=== PATIENT | male | born 1955 | race Caucasian/White ===

== ENCOUNTER 2016-08-18 05:12 | Inpatient (IN) | payer MEDICARE ==
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
[2016-08-18] MEDS ORDERED: MORPHINE SULFATE 10 MG/ML INJ IV ONE (07:06)
[2016-08-18 07:23] LABS: ABSOLUTE BASOPHILS # (AUTO) 0.1 10^3/uL (0.0-0.2); ABSOLUTE EOSINOPHILS # (AUTO) 0.1 10^3/uL (0.0-0.6); ABSOLUTE LYMPHOCYTES (AUTO) 1.9 10^3/uL (0.5-4.7); BASOPHILS % (AUTO) 0.4 % (0-2); EOSINOPHILS % (AUTO) 0.6 % (0-6); HEMATOCRIT 39.7 % (37.9-51.0); HEMOGLOBIN 13.3 g/dL (13.5-17.0); HGB HCT DIFFERENCE 0.2; LYMPHOCYTES % (AUTO) 13.7 % (13-45); MEAN CORPUSCULAR HEMOGLOBIN 31.1 pg (27.0-33.4); MEAN CORPUSCULAR HGB CONC 33.6 g/dL (32.0-36.0); MEAN CORPUSCULAR VOLUME 92 fl (80-97); MONOCYTES % (AUTO) 7.2 % (3-13); RED CELL DISTRIBUTION WIDTH 13.3 % (11.5-14.0); SEGMENTED NEUTROPHILS % (AUTO) 78.1 % (42-78)
[2016-08-18 07:45] LABS: ALANINE AMINOTRANSFERASE 38 U/L (21-72); ALBUMIN 4.3 g/dL (3.5-5.0); ALKALINE PHOSPHATASE 71 U/L (38-126); ANION GAP 12 (5-19); ASPARTATE AMINO TRANSFERASE 41 U/L (17-59); BILIRUBIN,DIRECT 0.1 mg/dL (0.0-0.4); BILIRUBIN,TOTAL 0.7 mg/dL (0.2-1.3); BLOOD UREA NITROGEN 18 mg/dL (7-20); CALCIUM 9.8 mg/dL (8.4-10.2); CARBON DIOXIDE 29 mmol/L (22-30); CHLORIDE 96 mmol/L (98-107); CREATININE RESULT 0.62 mg/dL (0.52-1.25); GLUCOSE 117 mg/dL (75-110); POTASSIUM 4.5 mmol/L (3.6-5.0); SODIUM 136.9 mmol/L (137-145); TOTAL PROTEIN 7.4 g/dL (6.3-8.2)
[2016-08-18 08:53] LABS: APPEARANCE,URINE SLIGHTLY-CLOUDY; BILIRUBIN,URINE NEGATIVE (NEGATIVE); GLUCOSE, URINE NEGATIVE (NEGATIVE); KETONES,URINE NEGATIVE (NEGATIVE); LEUKOCYTE ESTERASE,URINE TRACE (NEGATIVE); NITRITE,URINE NEGATIVE (NEGATIVE); PROTEIN,URINE NEGATIVE (NEGATIVE); URINE SPECIFIC GRAVITY 1.016; UROBILINOGEN,URINE NEGATIVE mg/dL (<2.0)
[2016-08-18] MEDS ORDERED: LEVOFLOXACIN 750 MG/D5W RTU 150 ML IV ONE (11:40)
[2016-08-18] MEDS ORDERED: ONDANSETRON 4 MG TAB.RAPDIS PO PRN (12:21)
[2016-08-18] MEDS ORDERED: IPRATROPIUM/ALBUTEROL 0.5-2.5 MG/3 ML AMPUL NEB PRN (12:21)
[2016-08-18] MEDS ORDERED: ONDANSETRON HCL INJ/PF 4 MG/2 ML SDV IV PRN (12:21)
[2016-08-18] MEDS ORDERED: HEPARIN SOD (PORCINE) 1,000 UNIT/ML 10 ML VIAL IV PRN (12:29)
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
[2016-08-18] MEDS ORDERED: HEPARIN SOD (PORCINE) 1,000 UNIT/ML 10 ML VIAL IV ONE (13:00)
[2016-08-18] MEDS: HYDROMORPHONE HCL INJ/PF 2 MG/ML AMPULE IV PRN ×2 (15:19→20:34)
--- NOTE | 2016-08-18 15:38 | EKG REPORT ---
SEVERITY:- OTHERWISE NORMAL ECG - SINUS RHYTHM BORDERLINE LEFT AXIS DEVIATION : Confirmed by: Capri Dahl MD 18-Aug-2016 15:36:52
[2016-08-18 15:42] LABS: ABSOLUTE EOSINOPHILS # (AUTO) 0.1 10^3/uL (0.0-0.6); ABSOLUTE LYMPHOCYTES (AUTO) 2.1 10^3/uL (0.5-4.7); ABSOLUTE MONOCYTES (AUTO) 1.1 10^3/uL (0.1-1.4); ABSOLUTE NEUT (AUTO) 10.3 10^3/uL (1.7-8.2); BASOPHILS % (AUTO) 0.3 % (0-2); EOSINOPHILS % (AUTO) 0.9 % (0-6); HEMATOCRIT 37.1 % (37.9-51.0); HEMOGLOBIN 12.7 g/dL (13.5-17.0); LYMPHOCYTES % (AUTO) 15.1 % (13-45); MEAN CORPUSCULAR HEMOGLOBIN 31.3 pg (27.0-33.4); MEAN CORPUSCULAR HGB CONC 34.3 g/dL (32.0-36.0); MEAN CORPUSCULAR VOLUME 91 fl (80-97); MONOCYTES % (AUTO) 8.3 % (3-13); RED BLOOD COUNT 4.07 10^6/uL (4.35-5.55); RED CELL DISTRIBUTION WIDTH 13.1 % (11.5-14.0); SEGMENTED NEUTROPHILS % (AUTO) 75.4 % (42-78); WHITE BLOOD COUNT 13.7 10^3/uL (4.0-10.5)
[2016-08-18 15:46] LABS: PROTHROMBIN TIME 13.8 SEC (11.4-15.4)
[2016-08-18 15:47] LABS: PARTIAL THROMBOPLASTIN TIME 34.6 SEC (23.5-35.8)
[2016-08-18] MEDS: HEPARIN SODIUM,PORCINE/D5W 250 ML IV PRN (16:55)
[2016-08-18] MEDS: FAMOTIDINE 20 MG TABLET PO SCH (21:02)
[2016-08-19] MEDS: HEPARIN SODIUM,PORCINE/D5W 250 ML IV PRN (00:15)
[2016-08-19] MEDS: OXYCODONE HCL IR 5 MG TABLET PO PRN ×2 (01:25→08:06)
[2016-08-19 01:46] LABS: APPEARANCE,URINE CLEAR; BILIRUBIN,URINE NEGATIVE (NEGATIVE); GLUCOSE, URINE NEGATIVE (NEGATIVE); KETONES,URINE NEGATIVE (NEGATIVE); LEUKOCYTE ESTERASE,URINE NEGATIVE (NEGATIVE); NITRITE,URINE NEGATIVE (NEGATIVE); PROTEIN,URINE NEGATIVE (NEGATIVE); URINE SPECIFIC GRAVITY 1.015; UROBILINOGEN,URINE NEGATIVE mg/dL (<2.0)
[2016-08-19 06:38] LABS: APPEARANCE,URINE CLEAR; BILIRUBIN,URINE NEGATIVE (NEGATIVE); GLUCOSE, URINE NEGATIVE (NEGATIVE); KETONES,URINE NEGATIVE (NEGATIVE); LEUKOCYTE ESTERASE,URINE NEGATIVE (NEGATIVE); NITRITE,URINE NEGATIVE (NEGATIVE); PROTEIN,URINE NEGATIVE (NEGATIVE); URINE SPECIFIC GRAVITY 1.011; UROBILINOGEN,URINE NEGATIVE mg/dL (<2.0)
[2016-08-19 07:14] LABS: HEMATOCRIT 38.7 % (37.9-51.0); HGB HCT DIFFERENCE 0.3; MEAN CORPUSCULAR HGB CONC 33.6 g/dL (32.0-36.0); MEAN CORPUSCULAR VOLUME 92 fl (80-97); RED BLOOD COUNT 4.19 10^6/uL (4.35-5.55); WHITE BLOOD COUNT 13.9 10^3/uL (4.0-10.5)
[2016-08-19 07:33] LABS: ANION GAP 13 (5-19); BLOOD UREA NITROGEN 16 mg/dL (7-20); CALCIUM 9.2 mg/dL (8.4-10.2); CARBON DIOXIDE 25 mmol/L (22-30); CHLORIDE 98 mmol/L (98-107); GLUCOSE 132 mg/dL (75-110); POTASSIUM 4.7 mmol/L (3.6-5.0); SODIUM 136.3 mmol/L (137-145)
[2016-08-19] MEDS: FAMOTIDINE 20 MG TABLET PO SCH (10:00)
[2016-08-19] MEDS ORDERED: LEVOFLOXACIN 750 MG/D5W RTU 150 ML IV SCH (10:00)
[2016-08-19] MEDS ORDERED: (PENDING PHARMACY ID) (Clonazepam [Klonopin] 0.5 MG) PO PRN (10:34)
[2016-08-19] MEDS ORDERED: GABAPENTIN 300 MG CAPSULE PO PRN (10:34)
[2016-08-19] MEDS ORDERED: OXYCODONE HCL IR 5 MG TABLET PO PRN (10:34)
--- NOTE | 2016-08-19 10:38 | PDOC PROGRESS REPORT ---
Subjective Progress Note for:: 08/19/16 Subjective:: Patient states that he has had occasional mild hemoptysis. He has also had 2 weeks of right sided mid back pain radiating to his right groin. He does have a history of chronic back pain and has had a spinal stimulator placed in the past. He denies weight loss. He denies loss of appetite. Physical Exam Vital Signs: Temp Pulse Resp BP Pulse Ox 97.5 F 95 18 142/92 H 98 08/19/16 07:18 08/19/16 07:18 08/19/16 07:18 08/19/16 07:18 08/19/16 07:18 Intake & Output 08/18/16 08/19/16 08/20/16 06:59 06:59 06:59 Intake Total 958 Output Total 800 Balance 158 Weight 105.6 kg GENERAL: No acute distress HEENT: Conjunctiva clear, nonicteric, moist mucous membranes, no JVD, midline trachea RESPIRATORY: Clear to auscultation bilaterally, no wheezes, no rhonchi CARDIAC: Regular rate and rhythm, no murmurs/gallops/rubs ABDOMEN: Soft, nondistended, nontender, positive bowel sounds, no rebound, no guarding EXTREMETIES: No edema, cyanosis, clubbing NEUROLOGIC: Alert, oriented to person/place/time, CN's grossly intact, no focal deficits SKIN: No rash, wounds PSYCH: Normal mood, normal affect Results Laboratory Results: 08/19/16 07:00 08/19/16 07:00 08/18/16 08/19/16 08/19/16 15:24 01:20 06:00 WBC 13.7 H RBC 4.07 L Hgb 12.7 L Hct 37.1 L MCV 91 MCH 31.3 MCHC 34.3 RDW 13.1 Plt Count 244 Seg Neutrophils % 75.4 Lymphocytes % 15.1 Monocytes % 8.3 Eosinophils % 0.9 Basophils % 0.3 Absolute Neutrophils 10.3 H Absolute Lymphocytes 2.1 Absolute Monocytes 1.1 Absolute Eosinophils 0.1 Absolute Basophils 0.0 Sodium Potassium Chloride Carbon Dioxide Anion Gap BUN Creatinine Est GFR ( Amer) Est GFR (Non-Af Amer) Glucose Calcium Urine Color YELLOW YELLOW Urine Appearance CLEAR CLEAR Urine pH 6.0 6.0 Ur Specific [place] 1.015 1.011 Urine Protein NEGATIVE NEGATIVE Urine Glucose (UA) NEGATIVE NEGATIVE Urine Ketones NEGATIVE NEGATIVE Urine Blood SMALL H SMALL H Urine Nitrite NEGATIVE NEGATIVE Ur Leukocyte Esterase NEGATIVE NEGATIVE Urine WBC (Auto) 2 0 Urine RBC (Auto) 0 1 08/19/16 08/19/16 07:00 07:00 WBC 13.9 H RBC 4.19 L Hgb 13.0 L Hct 38.7 MCV 92 MCH 31.0 MCHC 33.6 RDW 13.0 Plt Count 237 Seg Neutrophils % Lymphocytes % Monocytes % Eosinophils % Basophils % Absolute Neutrophils Absolute Lymphocytes Absolute Monocytes Absolute Eosinophils Absolute Basophils Sodium 136.3 L Potassium 4.7 Chloride 98 Carbon Dioxide 25 Anion Gap 13 BUN 16 Creatinine 0.60 Est GFR ( Amer) > 60 Est GFR (Non-Af Amer) > 60 Glucose 132 H Calcium 9.2 Urine Color Urine Appearance Urine pH Ur Specific [place] Urine Protein Urine Glucose (UA) Urine Ketones Urine Blood Urine Nitrite Ur Leukocyte Esterase Urine WBC (Auto) Urine RBC (Auto) Impressions: Chest X-Ray 08/18/16 07:02 IMPRESSION: NO ACUTE RADIOGRAPHIC FINDING IN THE CHEST. Chest/Abdomen CTA 08/18/16 08:56 IMPRESSION: Airspace consolidation in the right lower lobe which could represent a pneumonic infiltrate or atelectatic changes. There are intraluminal filling defects involving the distal right descending pulmonary artery and adjacent branches. While this may be related to pulmonary embolic disease, the possibility of vascular invasion by an adjacent right hilar mass cannot be excluded. Right hilar masses are identified presumably representing adenopathy however the possibility of a primary mass lesion cannot be excluded. There are multiple small nonenlarged mediastinal and left hilar lymph nodes. Other findings as noted above Assessment & Plan - Diagnosis (1) Lung mass Is this a current diagnosis for this admission?: YesPlan: In review of patient's CAT scan of the chest looks like he has a right lung mass. I think it is less likely that he has a pulmonary embolism, rather he likely has invasion from surrounding malignancy. Given ongoing hemoptysis I would like to discontinue anticoagulation. Based on elevated white blood count postobstructive pneumonia cannot be excluded. Continue Levaquin and add Zosyn for now. Blood cultures are still pending. Consult Dr. Courtney of pulmonary medicine. Consult Dr. Ct Mchugh of oncology. I have discussed these findings in detail with patient. He does not want to stay in the hospital for evaluation of possible as he has nobody to take care of his dog. Perhaps we can arrange outpatient workup/follow-up for these issues after consults are obtained. (2) Hemoptysis Is this a current diagnosis for this admission?: YesPlan: I think we need to discontinue heparin drip as CT findings are likely more consistent with tumor invasion of the vasculature rather than ulnar embolism. Patient is likely to have life-threatening pulmonary hemorrhage if fully anticoagulate under these circumstances. (3) Back pain Is this a current diagnosis for this admission?: YesPlan: Check CT scan abdomen/pelvis given lung mass. Patient has chronic pain and is chronic opiate dependent at baseline. He has a history of a spinal stimulator per his report. (4) BPH (benign prostatic hyperplasia) Is this a current diagnosis for this admission?: YesPlan: Resume outpatient Flomax. (5) Hypertension Is this a current diagnosis for this admission?: YesPlan: Resume outpatient atenolol 100 mg daily. (6) Tobacco abuse Is this a current diagnosis for this admission?: Yes - Time Time Spent with patient: 35 or more minutes Anticipated discharge: Home - Inpatient Certification Based on my medical assessment, after consideration of the patient's comorbidities, presenting symptoms, or acuity I expect that the services needed warrant INPATIENT care.: Yes I certify that my determination is in accordance with my understanding of Medicare's requirements for reasonable and necessary INPATIENT services [42 CFR 412.3e].: Yes Medical Necessity: Risk of Diagnosis Which Will Require Inpatient Eval/Care/ Monitoring
[2016-08-19] MEDS ORDERED: CLONAZEPAM 1 MG TABLET PO PRN (10:46)
[2016-08-19] MEDS: PIPERACILLIN SODIUM/TAZOBACTAM 3.375 GM in NORMAL SALINE 100 ML IV SCH ×2 (14:24→17:34)
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
[2016-08-19] MEDS ORDERED: DEXTROSE 40% GEL 15 GM TUBE PO PRN ×2 (14:46)
[2016-08-19] MEDS ORDERED: GLUCAGON,HUMAN RECOMB 1 MG INJ SUBCUT PRN (14:46)
[2016-08-19] MEDS ORDERED: DEXTROSE 50%-WATER 25 GM/50 ML DISP.SYRIN IV PRN ×2 (14:46)
[2016-08-19] MEDS ORDERED: NICOTINE 14 MG/24 HR PATCH.TD24 TD ONE (16:00)
--- NOTE | 2016-08-19 17:34 | PDOC DISCHARGE SUMMARY ---
General - Admit/Disc Date/PCP Admission Date/Primary Care Provider: 08/19/16 09:55 Discharge Date: 08/19/16 - Discharge Diagnosis (1) Lung mass Is this a current diagnosis for this admission?: Yes (2) Pneumonia Is this a current diagnosis for this admission?: Yes (3) Hemoptysis Is this a current diagnosis for this admission?: Yes (4) Back pain Is this a current diagnosis for this admission?: Yes (5) BPH (benign prostatic hyperplasia) Is this a current diagnosis for this admission?: Yes (6) Hypertension Is this a current diagnosis for this admission?: Yes (7) Tobacco abuse Is this a current diagnosis for this admission?: Yes - Additional Information Resuscitation Status: Do Not Resuscitate Discharge Diet: Regular Discharge Activity: Activity As Tolerated Home Medications: Atenolol [Tenormin 100 mg Tablet] 100 mg PO DAILY 08/18/16 Clonazepam [Klonopin] 0.5 mg PO BIDP PRN 08/18/16 Gabapentin [Neurontin 300 mg Capsule] 300 mg PO DAILYP PRN 08/18/16 Oxycodone HCl [Oxy-Ir 5 mg Tablet] 15 mg PO 5XDP PRN 08/18/16 Tamsulosin HCl [Flomax 0.4 mg Cap.sr] 0.4 mg PO DAILY 08/18/16 Amoxicillin/Potassium Clav [Augmentin 875-125 Tablet] 1 each PO BID #14 tablet 08/19/16 Azithromycin 500 mg PO DAILY #5 tablet 08/19/16 Benzonatate [Tessalon Perle 100 mg Capsule] 100 mg PO Q8HP PRN #20 cap 08/19/16 History of Present Illness Patient complains of: Coughing up blood History of Present Illness: KAHLIL MAX is a 60 year old male who presents with coughing up blood. Patient reports that for the last 2 days he has had problems with right flank pain and right posterior chest wall pain. He then last night began having episodes of coughing and coughed up some bright red blood. Patient had a CT angiogram of the lungs which shows him to have a right sided pneumonia along with pulmonary embolism and a possible lung mass. Patient denies having any fevers or chills. Denies any night sweats. Denies any weight loss. He does smoke one half pack per day. Denies any exposure to anyone with tuberculosis. Denies any overseas travel. Denies any episodes of long immobility. He denies having any palpitations or tachycardia. He denies any orthopnea or PND. Denies any lower extremity edema. Hospital Course Hospital Course: Patient with right lung mass and probable post-obstructive pneumonia. Seen by Dr. Courtney of pulmonary and Dr. Mchugh of oncology. Patient is scheduled to have bronchoscopy on 08/22/2016 and will follow up with pulmonary and oncology as outpatient. CTA of chest mentioned filling defect in segmental branch of pulmonary artery with DDXincluding PE or direct invasion of malignancy. Given ongoing hemoptysis, lung mass, and upcoming bronchoscopy and biopsy decicion was made not to anticoagulate patient. It was felt that his bleeding risk was too high to tolerate anticoagulation. He is discharged home on oral antibiotics and advised to stop smoking. Physical Exam Vital Signs: Temp Pulse Resp BP Pulse Ox 97.5 F 98 16 137/71 H 98 08/19/16 12:10 08/19/16 14:00 08/19/16 12:10 08/19/16 12:10 08/19/16 12:10 Intake & Output 08/18/16 08/19/16 08/20/16 06:59 06:59 06:59 Intake Total 437 Balance 437 General appearance: PRESENT: no acute distress, well-developed, well-nourished Head exam: PRESENT: atraumatic, normocephalic Eye exam: PRESENT: conjunctiva pink, EOMI, PERRLA. ABSENT: scleral icterus Ear exam: PRESENT: normal external ear exam Mouth exam: PRESENT: moist, tongue midline Neck exam: ABSENT: carotid bruit, JVD, lymphadenopathy, thyromegaly Respiratory exam: PRESENT: clear to auscultation radu. ABSENT: rales, rhonchi, wheezes Cardiovascular exam: PRESENT: RRR. ABSENT: diastolic murmur, rubs, systolic murmur Pulses: PRESENT: normal dorsalis pedis pul Vascular exam: PRESENT: normal capillary refill GI/Abdominal exam: PRESENT: normal bowel sounds, soft. ABSENT: distended, guarding, mass, organolmegaly, rebound, tenderness Rectal exam: PRESENT: deferred Extremities exam: PRESENT: full ROM. ABSENT: calf tenderness, clubbing, pedal edema Neurological exam: PRESENT: alert, awake, oriented to person, oriented to place , oriented to time, oriented to situation, CN II-XII grossly intact. ABSENT: motor sensory deficit Psychiatric exam: PRESENT: appropriate affect, normal mood. ABSENT: homicidal ideation, suicidal ideation Skin exam: PRESENT: dry, intact, warm. ABSENT: cyanosis, rash Results Laboratory Results: Labs- Entire Visit 08/18/16 08/18/16 08/18/16 07:00 07:00 08:18 WBC 14.0 H RBC 4.30 L Hgb 13.3 L Hct 39.7 MCV 92 MCH 31.1 MCHC 33.6 RDW 13.3 Plt Count 259 Seg Neutrophils % 78.1 H Lymphocytes % 13.7 Monocytes % 7.2 Eosinophils % 0.6 Basophils % 0.4 Absolute Neutrophils 11.0 H Absolute Lymphocytes 1.9 Absolute Monocytes 1.0 Absolute Eosinophils 0.1 Absolute Basophils 0.1 PT INR APTT Sodium 136.9 L Potassium 4.5 Chloride 96 L Carbon Dioxide 29 Anion Gap 12 BUN 18 Creatinine 0.62 Est GFR ( Amer) > 60 Est GFR (Non-Af Amer) > 60 Glucose 117 H Calcium 9.8 Total Bilirubin 0.7 Direct Bilirubin 0.1 Indirect Bilirubin Not Reportable Neonat Total Bilirubin Not Reportable AST 41 ALT 38 Alkaline Phosphatase 71 Total Protein 7.4 Albumin 4.3 Urine Color YELLOW Urine Appearance SLIGHTLY-CLOUDY Urine pH 6.0 Ur Specific Jansen 1.016 Urine Protein NEGATIVE Urine Glucose (UA) NEGATIVE Urine Ketones NEGATIVE Urine Blood NEGATIVE Urine Nitrite NEGATIVE Urine Bilirubin NEGATIVE Urine Urobilinogen NEGATIVE Ur Leukocyte Esterase TRACE H Urine WBC (Auto) 2 Urine RBC (Auto) 2 Squamous Epi Cells Auto <1 Urine Mucus (Auto) RARE Urine Ascorbic Acid NEGATIVE 08/18/16 08/18/16 08/18/16 15:24 15:24 22:50 WBC 13.7 H RBC 4.07 L Hgb 12.7 L Hct 37.1 L MCV 91 MCH 31.3 MCHC 34.3 RDW 13.1 Plt Count 244 Seg Neutrophils % 75.4 Lymphocytes % 15.1 Monocytes % 8.3 Eosinophils % 0.9 Basophils % 0.3 Absolute Neutrophils 10.3 H Absolute Lymphocytes 2.1 Absolute Monocytes 1.1 Absolute Eosinophils 0.1 Absolute Basophils 0.0 PT 13.8 INR 1.03 APTT 34.6 36.1 H Sodium Potassium Chloride Carbon Dioxide Anion Gap BUN Creatinine Est GFR ( Amer) Est GFR (Non-Af Amer) Glucose Calcium Total Bilirubin Direct Bilirubin Indirect Bilirubin Neonat Total Bilirubin AST ALT Alkaline Phosphatase Total Protein Albumin Urine Color Urine Appearance Urine pH Ur Specific Jansen Urine Protein Urine Glucose (UA) Urine Ketones Urine Blood Urine Nitrite Urine Bilirubin Urine Urobilinogen Ur Leukocyte Esterase Urine WBC (Auto) Urine RBC (Auto) Squamous Epi Cells Auto Urine Mucus (Auto) Urine Ascorbic Acid 08/19/16 08/19/16 08/19/16 01:20 06:00 07:00 WBC 13.9 H RBC 4.19 L Hgb 13.0 L Hct 38.7 MCV 92 MCH 31.0 MCHC 33.6 RDW 13.0 Plt Count 237 Seg Neutrophils % Lymphocytes % Monocytes % Eosinophils % Basophils % Absolute Neutrophils Absolute Lymphocytes Absolute Monocytes Absolute Eosinophils Absolute Basophils PT INR APTT Sodium Potassium Chloride Carbon Dioxide Anion Gap BUN Creatinine Est GFR ( Amer) Est GFR (Non-Af Amer) Glucose Calcium Total Bilirubin Direct Bilirubin Indirect Bilirubin Neonat Total Bilirubin AST ALT Alkaline Phosphatase Total Protein Albumin Urine Color YELLOW YELLOW Urine Appearance CLEAR CLEAR Urine pH 6.0 6.0 Ur Specific Jansen 1.015 1.011 Urine Protein NEGATIVE NEGATIVE Urine Glucose (UA) NEGATIVE NEGATIVE Urine Ketones NEGATIVE NEGATIVE Urine Blood SMALL H SMALL H Urine Nitrite NEGATIVE NEGATIVE Urine Bilirubin NEGATIVE NEGATIVE Urine Urobilinogen NEGATIVE NEGATIVE Ur Leukocyte Esterase NEGATIVE NEGATIVE Urine WBC (Auto) 2 0 Urine RBC (Auto) 0 1 Squamous Epi Cells Auto Urine Mucus (Auto) RARE RARE Urine Ascorbic Acid NEGATIVE NEGATIVE 08/19/16 08/19/16 08/19/16 07:00 07:00 15:35 WBC RBC Hgb Hct MCV MCH MCHC RDW Plt Count Seg Neutrophils % Lymphocytes % Monocytes % Eosinophils % Basophils % Absolute Neutrophils Absolute Lymphocytes Absolute Monocytes Absolute Eosinophils Absolute Basophils PT INR APTT 112.8 H D 38.8 H Sodium 136.3 L Potassium 4.7 Chloride 98 Carbon Dioxide 25 Anion Gap 13 BUN 16 Creatinine 0.60 Est GFR ( Amer) > 60 Est GFR (Non-Af Amer) > 60 Glucose 132 H Calcium 9.2 Total Bilirubin Direct Bilirubin Indirect Bilirubin Neonat Total Bilirubin AST ALT Alkaline Phosphatase Total Protein Albumin Urine Color Urine Appearance Urine pH Ur Specific Jansen Urine Protein Urine Glucose (UA) Urine Ketones Urine Blood Urine Nitrite Urine Bilirubin Urine Urobilinogen Ur Leukocyte Esterase Urine WBC (Auto) Urine RBC (Auto) Squamous Epi Cells Auto Urine Mucus (Auto) Urine Ascorbic Acid Impressions: Chest X-Ray 08/18/16 07:02 IMPRESSION: NO ACUTE RADIOGRAPHIC FINDING IN THE CHEST. Chest/Abdomen CTA 08/18/16 08:56 IMPRESSION: Airspace consolidation in the right lower lobe which could represent a pneumonic infiltrate or atelectatic changes. There are intraluminal filling defects involving the distal right descending pulmonary artery and adjacent branches. While this may be related to pulmonary embolic disease, the possibility of vascular invasion by an adjacent right hilar mass cannot be excluded. Right hilar masses are identified presumably representing adenopathy however the possibility of a primary mass lesion cannot be excluded. There are multiple small nonenlarged mediastinal and left hilar lymph nodes. Other findings as noted above Abdomen/Pelvis CT 08/19/16 00:00 IMPRESSION: Right lower lobe pulmonary infarct/consolidation 6 to 7 mm left lower pole intrarenal nonobstructive stone. Degenerative changes lumbar spine most pronounced at L3-4. Qualifiers PATEINT BEING DISCHARGED WITH ANY OF THE FOLLOWING DIAGNOSIS?: No Plan Time Spent: Less than 30 Minutes
[2016-08-19] MEDS ORDERED: TAMSULOSIN HCL 0.4 MG CAP.SR.24H PO SCH (18:00)
[2016-08-19 18:40] VITALS: BP 154/86
[2016-08-20] MEDS ORDERED: (PENDING PHARMACY ID) (Atenolol [Tenormin 100 Mg Tablet] 100 MG) PO SCH (10:00)
[2016-08-20] MEDS ORDERED: NICOTINE 14 MG/24 HR PATCH.TD24 TD SCH (10:00)
[2016-08-20] MEDS ORDERED: ATENOLOL 50 MG TABLET PO SCH (10:00)
[2016-08-22] MEDS ORDERED: IPRATROPIUM/ALBUTEROL 0.5-2.5 MG/3 ML AMPUL NEB ONE (12:00)
== END 2016-08-19 19:00 | disposition home or self-care (01) | DRG 204 ==
LOC: ER 05:12 → UNDOADMIN 11:57 → EH 11:57 → INTOOBSV 12:22 → EH 12:22 → 3N 18:24 → OBSVTOIN 08-19 09:55
PROVIDERS: ADMIT Internal Medicine; ATTEND Internal Medicine
DX: R04.2 Hemoptysis (principal); J18.1 Lobar pneumonia, unspecified organism; R91.8 Other nonspecific abnormal finding of lung field; R10.9 Unspecified abdominal pain; M54.9 Dorsalgia, unspecified; G89.29 Other chronic pain; N40.0 Benign prostatic hyperplasia without lower urinary tract symptoms; I10 Essential (primary) hypertension; Z66 Do not resuscitate; Z79.899 Other long term (current) drug therapy; F17.210 Nicotine dependence, cigarettes, uncomplicated; Z88.8 Allergy status to other drugs, medicaments and biological substances
CPT/HCPCS: 36415; 71020; 71275; 74177; 80048; 80053; 81001; 85025; 85027; 85610; 85730; 87040; 93005; 93010; 99291; G0378; J1170; J1644; J1956; J2543; J3490

== ENCOUNTER 2016-08-22 10:33 | Day surgery (SDC) | payer MEDICARE ==
[2016-08-22 11:10] LABS: ABSOLUTE BASOPHILS # (AUTO) 0.1 10^3/uL (0.0-0.2); ABSOLUTE EOSINOPHILS # (AUTO) 0.5 10^3/uL (0.0-0.6); ABSOLUTE MONOCYTES (AUTO) 0.8 10^3/uL (0.1-1.4); ABSOLUTE NEUT (AUTO) 8.4 10^3/uL (1.7-8.2); BASOPHILS % (AUTO) 0.5 % (0-2); EOSINOPHILS % (AUTO) 3.9 % (0-6); HEMATOCRIT 38.9 % (37.9-51.0); HEMOGLOBIN 13.2 g/dL (13.5-17.0); HGB HCT DIFFERENCE 0.7; LYMPHOCYTES % (AUTO) 23.8 % (13-45); MEAN CORPUSCULAR HEMOGLOBIN 31.4 pg (27.0-33.4); MEAN CORPUSCULAR VOLUME 92 fl (80-97); MONOCYTES % (AUTO) 6.2 % (3-13); RED BLOOD COUNT 4.21 10^6/uL (4.35-5.55); RED CELL DISTRIBUTION WIDTH 13.1 % (11.5-14.0); SEGMENTED NEUTROPHILS % (AUTO) 65.6 % (42-78); WHITE BLOOD COUNT 12.8 10^3/uL (4.0-10.5)
[2016-08-22 11:19] LABS: PROTHROMBIN TIME 12.9 SEC (11.4-15.4)
[2016-08-22 11:20] LABS: PARTIAL THROMBOPLASTIN TIME 32.1 SEC (23.5-35.8)
[2016-08-22] MEDS ORDERED: DEXAMETHASONE SOD PHOSPHATE INJ 4 MG/1 ML VIAL ONE (11:55)
[2016-08-22] MEDS ORDERED: MIDAZOLAM 2 MG/2 ML INJ ONE (11:55)
[2016-08-22] MEDS ORDERED: ONDANSETRON HCL INJ/PF 4 MG/2 ML SDV ONE (11:55)
[2016-08-22] MEDS ORDERED: FENTANYL CITRATE INJ/PF 100 MCG/2 ML AMPUL ONE (11:55)
[2016-08-22] MEDS ORDERED: PROPOFOL INJ 200 MG/20 ML VIAL IV ONE (11:56)
[2016-08-22] MEDS ORDERED: ALBUTEROL SULFATE 0.083% NEB 2.5 MG/3 ML AMPUL NEB ONE (12:14)
[2016-08-22 12:29] LABS: ANION GAP 10 (5-19); BLOOD UREA NITROGEN 18 mg/dL (7-20); CALCIUM 9.6 mg/dL (8.4-10.2); CARBON DIOXIDE 25 mmol/L (22-30); CHLORIDE 104 mmol/L (98-107); CREATININE RESULT 0.51 mg/dL (0.52-1.25); GLUCOSE 99 mg/dL (75-110); POTASSIUM 4.9 mmol/L (3.6-5.0); SODIUM 139.3 mmol/L (137-145)
[2016-08-22] MEDS ORDERED: NORMAL SALINE 1000 ML 1,000 ML IV PRN (12:31)
[2016-08-22] MEDS ORDERED: LIDOCAINE 2% INJ (20 MG/ML) 20 ML MDV ONE (12:41)
[2016-08-22] MEDS ORDERED: LIDOCAINE 2% JELLY 30 ML TUBE ONE (12:41)
[2016-08-22] MEDS ORDERED: EPINEPHRINE INJ/PF 1 MG/1 ML AMPULE ONE (12:42)
[2016-08-22] MEDS ORDERED: PROMETHAZINE HCL INJ 25 MG/1 ML VIAL IV PRN ×2 (13:29)
[2016-08-22] MEDS ORDERED: FENTANYL CITRATE INJ/PF 100 MCG/2 ML AMPUL IV PRN ×3 (13:29)
[2016-08-22] MEDS ORDERED: MEPERIDINE HCL/PF INJ 25 MG/1 ML DISP.SYRIN IV PRN (13:29)
[2016-08-22] MEDS ORDERED: ONDANSETRON HCL INJ/PF 4 MG/2 ML SDV IV PRN (13:29)
[2016-08-22] MEDS ORDERED: DIPHENHYDRAMINE HCL 50 MG/ML VIAL IV PRN (13:29)
--- NOTE | 2016-08-22 14:15 | Operative Report ---
Operative Report DATE OF SURGERY: 08/22/16 Operative Report: Patient kept NPO 12 hrs prior to proceedure.Taken to preop area consents reviewed,nebulized treatment was given an iv access established,Then taken to bronchoscopy suite were he was intubated by anesthesiology.Then using a "T" sized Olympic scope his tracheo-bronchial tree was explored.There was minimal splaying of the jw and distal trachea was normal.His L mainstem bronchus,L upper lobe,lingula and L lower lobe were within normal limits.R main stem bronchus was normal.Lavage was taken from R middle lobe and R lower lobe.There was diffuse submucosal swelling along the R upper lobe,bronchus intermedius and r middle lobes.The submucosal swelling present but less pronounced in r lower lobe.Transbronchial biopsies R middle lobe and R lower lobe were taken.Multiple [place] needle biopsies from the R upper lobe,bronchus intermedius , R middle lobe and R lower lobe were taken.Patient tolerated well post procedure SAO2 98% and CXR in progress.Fluids and tissue sent to lab for appropriate analysis. PREOPERATIVE DIAGNOSIS: R Lung mass POSTOPERATIVE DIAGNOSIS: same OPERATION: fiberoptic bronchoscopy with bronchoalveolar lavage;transbronchial and lawton needle biopsy SURGEON: ANN LIU ANESTHESIA: GA TISSUE REMOVED OR ALTERED: bronchoalveolar lavage;transbronchial and lawton needle biopsy COMPLICATIONS: none ESTIMATED BLOOD LOSS: 5 cc
[2016-08-22] MEDS ORDERED: SUCCINYLCHOLINE CHLORIDE INJ 200 MG/10 ML VIAL ONE (14:35)
[2016-08-22 15:20] VITALS: BP 144/70
[2016-08-22 15:28] LABS: FLUID TYPE BRONCHIAL LAVAGE
[2016-08-22 15:29] LABS: FLUID APPEARANCE CLOUDY; FLUID RBC SIDE 1 85
[2016-08-22 15:30] LABS: FLUID RBC DILUENT USED NONE USED; FLUID RBC DILUTION FACTOR 1; FLUID RBC SIDE 2 75; TOTAL RBC SQUARES COUNTED FLD 225
[2016-08-22 15:42] LABS: FLUID APPEARANCE CLOUDY; FLUID RBC SIDE 1 805; FLUID RBC SIDE 2 845; FLUID TYPE BRONCHIAL LAVAGE
[2016-08-22 15:43] LABS: FLUID RBC DILUENT USED SALINE; FLUID RBC DILUTION FACTOR 26; TOTAL RBC SQUARES COUNTED FLD 25
[2016-08-22] MEDS ORDERED: ACETAMINOPHEN 325 MG TABLET PO SCH (18:00)
== END 2016-08-22 15:30 | disposition home or self-care (01) ==
LOC: OROUT 10:33
PROVIDERS: ATTEND Internal Medicine Pulmonary Disease
PROC: 0B9D8ZX Drainage of Right Middle Lung Lobe, Via Natural or Artificial Opening Endoscopic, Diagnostic (ICD-10-PCS; principal; 2016-08-22 12:45)
PROC: 0BBD8ZX Excision of Right Middle Lung Lobe, Via Natural or Artificial Opening Endoscopic, Diagnostic (ICD-10-PCS; 2016-08-22 12:45)
DX: R04.2 Hemoptysis (principal); R06.00 Dyspnea, unspecified; R91.8 Other nonspecific abnormal finding of lung field; I10 Essential (primary) hypertension; M19.90 Unspecified osteoarthritis, unspecified site; F17.210 Nicotine dependence, cigarettes, uncomplicated; Z96.659 Presence of unspecified artificial knee joint; Z96.643 Presence of artificial hip joint, bilateral; Z79.01 Long term (current) use of anticoagulants; Z88.5 Allergy status to narcotic agent
CPT/HCPCS: 31625; 31629; 31624; 36415; 87070; 87205; 87206; 87116; 87101; 85025; 85610; 85730; 89050; 80048; 87015; 88162; 88173 ×2; 88305 ×2; 71010; J2250; J1100; J0171; J3010; J0330; J2405; J2704; A9270; 520; J3490

== ENCOUNTER → 2016-08-24 | Outpatient (CLI) | payer MEDICARE ==
[2016-08-24 21:40] LABS: APPEARANCE,URINE CLEAR; BILIRUBIN,URINE NEGATIVE (NEGATIVE); GLUCOSE, URINE NEGATIVE (NEGATIVE); KETONES,URINE NEGATIVE (NEGATIVE); LEUKOCYTE ESTERASE,URINE NEGATIVE (NEGATIVE); NITRITE,URINE NEGATIVE (NEGATIVE); PROTEIN,URINE NEGATIVE (NEGATIVE); URINE SPECIFIC GRAVITY 1.015; UROBILINOGEN,URINE NEGATIVE mg/dL (<2.0)
[2016-08-24 21:53] LABS: ANION GAP 13 (5-19); BLOOD UREA NITROGEN 24 mg/dL (7-20); CALCIUM 9.8 mg/dL (8.4-10.2); CARBON DIOXIDE 25 mmol/L (22-30); CHLORIDE 105 mmol/L (98-107); CREATINE KINASE 153 U/L (55-170); GLUCOSE 95 mg/dL (75-110); MAGNESIUM 2.2 mg/dL (1.6-2.3); PHOSPHORUS 4.3 mg/dL (2.5-4.5); POTASSIUM 4.5 mmol/L (3.6-5.0); SODIUM 142.8 mmol/L (137-145)
== END ==
LOC: LAB 20:48
PROVIDERS: ATTEND Internal Medicine Pulmonary Disease
DX: R25.2 Cramp and spasm (principal)
CPT/HCPCS: 36415; 80048; 81001; 82550; 83735; 84100

== ENCOUNTER → 2016-12-10 | Outpatient (CLI) | payer MEDICARE ==
--- NOTE | 2016-12-10 09:20 | RADIOLOGY REPORT (SQ) ---
EXAM DESCRIPTION: CT CHEST WITHOUT COMPLETED DATE/TIME: 12/10/2016 8:47 am REASON FOR STUDY: LUNG NODULE R91.8 OTHER NONSPECIFIC ABNORMAL FINDING OF LUNG FIELD COMPARISON: 08/18/2016 TECHNIQUE: CT scan performed of the chest without intravenous contrast. Images reviewed with lung, soft tissue and bone windows. Reconstructed coronal and sagittal MPR images reviewed. All images st ored on PACS. All CT scanners at this facility use dose modulation, iterative reconstruction, and/or weight based d osing when appropriate to reduce radiation dose to as low as reasonably achievable (ALARA). [facility]: Dose Right [facility]: CareDose [facility]: Dose Right [facility]: Teradose 4D [facility]: Smart [place] Post RADIATION DOSE: Up-to-date CT equipment and radiation dose reduction techniques were employed. CTDIv ol: 18.8 mGy. DLP: 730 mGy-cm. mGy. LIMITATIONS: No technical limitations. FINDINGS: LUNGS AND PLEURA: Centrilobular and paraseptal emphysematous changes in the upper lobes. Linear scarring in the lung bases. No effusions. HILAR AND MEDIASTINAL STRUCTURES: No identified masses or abnormal nodes. No obvious aneurysm. HEART AND VASCULAR STRUCTURES: No aneurysm. No pericardial effusion. UPPER ABDOMEN: No significant findings. Limited exam. THYROID AND OTHER SOFT TISSUES: No masses. No adenopathy. BONES: Healed left rib fractures. No acute findings. HARDWARE: None in the chest. OTHER: No other significant findings. IMPRESSION: COPD. No acute findings. TECHNICAL DOCUMENTATION: JOB ID: [id number] Quality ID # [id number]: Final reports with documentation of one or more dose reduction techniques (e.g., Au tomated exposure control, adjustment of the mA and/or kV according to patient size, use of iterative reconstruction technique) 2010 [employer]- All Rights Reserved
== END ==
LOC: RAD 08:26
PROVIDERS: ATTEND Internal Medicine Critical Care Medicine
DX: R91.8 Other nonspecific abnormal finding of lung field (principal)
CPT/HCPCS: 71250

== ENCOUNTER → 2017-02-11 | Outpatient (CLI) | payer MEDICARE ==
--- NOTE | 2017-02-11 14:24 | RADIOLOGY REPORT (SQ) ---
EXAM DESCRIPTION: MRI LUMBAR SPINE WITHOUT COMPLETED DATE/TIME: 02/11/2017 10:00 am REASON FOR STUDY: RADICULOPATHY, LUMBAR REGION M54.17 RADICULOPATHY, LUMBOSACRAL REGION COMPARISON: None. TECHNIQUE: Sagittal and Axial imaging includes T1, T2, STIR and gradient echo sequences. Coronal T2/ HASTE imaging. LIMITATIONS: Motion FINDINGS: VISUALIZED UPPER ABDOMEN: Limited evaluation. No acute or suspicious findings suggested. SEGMENTATION: No transitional anatomy. The lowest well-developed disc space is labeled L5-S1. ALIGNMENT: Mild scoliosis. Mild malalignment in the coronal plane at multiple levels. VERTEBRAE: No acute fracture. BONE MARROW: No significant marrow abnormality. DISC SIGNAL: Desiccation multiple levels. POSTERIOR ELEMENTS: Intact. HARDWARE: None in the spine. CORD AND CONUS: Normal in size and signal intensity. Conus at the appropriate level. SOFT TISSUES: No aortic aneurysm seen. No bulky retroperitoneal adenopathy or mass. No paraspinal mas s or fluid. L1-L2: Ventral impression on the thecal sac due to disc bulge. Mild facet arthropathy. L2-L3: Ventral impression on the thecal sac due to disc osteophyte complex. Mild facet arthropathy. Mild neural foraminal narrowing. L3-L4: Ventral impression on the thecal sac due to disc osteophyte complex. Facet arthropathy. Mild left and moderate right neural foraminal narrowing. L4-L5: Disc bulge and facet arthropathy. No significant spinal stenosis or exit foraminal stenosis. L5-S1: Disc bulge and facet arthropathy. No significant spinal stenosis or exit foraminal stenosis. LOWER THORACIC: Incompletely imaged. Mild spinal stenosis T11-12. SACRUM: Visualized upper sacrum intact. OTHER: No other significant findings. IMPRESSION: Spondylosis and facet arthropathy. Mild spinal stenosis L1-2 through L3-4. TECHNICAL DOCUMENTATION: JOB ID: [id number]- All Rights Reserved
== END ==
LOC: RAD 02-09 19:10
PROVIDERS: ATTEND Student in an Organized Health Care Education/Training Program
DX: M54.17 Radiculopathy, lumbosacral region (principal)
CPT/HCPCS: 72148

== ENCOUNTER 2017-06-29 19:20 | Emergency (ER) | payer MEDICARE ==
[2017-06-29 19:42] VITALS: BP 127/81
[2017-06-29] MEDS ORDERED: FONDAPARINUX SODIUM INJ 10 MG/0.8 ML DISP.SYRIN SUBCUT ONE (20:54)
--- NOTE | 2017-06-29 21:04 | ER Document Report ---
ED Medical Screen (RME) - General Chief Complaint: Leg Pain Stated Complaint: MEDICATION NEEDS Time Seen by Provider: 06/29/17 20:53 Mode of Arrival: Ambulatory Information source: Patient Notes: This is a 61-year-old man with a history of hypertension that has had left lower extremity pain for the past week and had an outpatient Doppler. The outpatient Doppler showed a DVT and he was referred to the emergency room for anticoagulation. Patient denies any chest pain, shortness of breath. TRAVEL OUTSIDE OF THE [place] IN LAST 30 DAYS: No - HPI Onset: Last week Onset/Duration: Gradual Quality of pain: Dull Severity: Mild Pain Level: 1 Associated Symptoms: denies: Chest pain, Shortness of breath Exacerbated by: Denies Relieved by: Denies Similar symptoms previously: No Recently seen / treated by doctor: Yes - Related Data Smoking: Non-smoker Frequency of alcohol use: None Drug Abuse: None Allergies/Adverse Reactions: morphine Adverse Reaction (Verified 06/29/17 20:16) Past Medical History - General Information source: Patient - Social History Cigarette use (# per day): No Chew tobacco use (# tins/day): No Frequency of alcohol use: None Drug Abuse: None Lives with: Alone Family history: None - Past Medical History Cardiac Medical History: Reports: Hx Hypertension Denies: Hx Coronary Artery Disease, Hx Heart Attack Pulmonary Medical History: Reports: Hx Pneumonia - 08/2016 Denies: Hx Asthma, Hx Bronchitis, Hx COPD Neurological Medical History: Denies: Hx Cerebrovascular Accident, Hx Seizures Renal/ Medical History: Denies: Hx Peritoneal Dialysis Musculoskeltal Medical History: Reports Hx Arthritis Past Surgical History: Reports: Hx Orthopedic Surgery - hip and knee replacements, Other - History of a spinal neurostimulator. Patient had this removed. - Immunizations Hx Diphtheria, Pertussis, Tetanus Vaccination: Yes Review of Systems - Review of Systems Notes: Review of systems: Constitutional: Denies fever, chills. EENT: Denies ear pain, sinus tenderness, throat pain, throat swelling. Cardiovascular: Denies chest pain, palpitations, dyspnea or edema. Respiratory: Denies wheezing, cough, hemoptysis. Musculoskeletal: Left calf pain Neurologic: Skin: Denies rash, lesions. Physical Exam - Vital signs Vitals: Temp Pulse Resp BP Pulse Ox 98.1 F 68 18 127/81 H 95 06/29/17 19:40 06/29/17 19:40 06/29/17 19:40 06/29/17 19:40 06/29/17 19:40 Notes: Physical exam: GENERAL: 61-year-old man, alert and oriented 3, no acute distress HEAD: Atraumatic, normocephalic. EYES: Extraocular movements intact, sclera anicteric, conjunctiva are normal. ENT: Left palate scar. Moist mucous membranes. NECK: Normal range of motion, supple LUNGS: Breath sounds clear to auscultation bilaterally and equal. No wheezes rales or rhonchi. HEART: Regular rate and rhythm without murmurs, rubs or gallops. ABDOMEN: Soft, normoactive bowel sounds. No tenderness to palpation. No guarding, no rebound. No masses appreciated. EXTREMITIES: Left calf pain and swelling. Distal pulses intact PSYCH: Normal mood, normal affect. SKIN: Warm, Dry, normal turgor, no rashes or lesions noted. Course - Re-evaluation Re-evalutation: 06/29/17 21:00 I have had a long discussion with the patient. There is an issue with cost of the medicines. The Xarelto was listed as $433 a month and the patient states that he is unable to afford the copayments for this type of medicine. While the Coumadin is certainly cheaper at $78 a month, this treatment regimen requires an inpatient admission with IV heparin for a bridge to therapeutic Coumadin, followed by significant dietary restrictions and weekly blood tests for INR testing. I discussed case with Dr. Clarke who is willing to admit the patient for IV heparin bridge if it is required. I discussed the case with Dr. Mandujano (Hematology)who is willing to see the patient in the office. He recommended giving the patient on Arixtra in the emergency room given that it will last 24 hours and wants to see the patient in the office tomorrow where he can arrange for the patient to get free samples, a free month's worth of Xarelto and have [facility]. I have discussed the issues with the patient again and given him the option ( inpatient admission for IV heparin until therapeutic Coumadin which could last a few days) or the option to see Dr. Mandujano in the office tomorrow. The patient is okay with seeing Dr. Yovani brand in the office. - Vital Signs Vital signs: Temp Pulse Resp BP Pulse Ox 98.1 F 68 18 127/81 H 95 06/29/17 19:40 06/29/17 19:40 06/29/17 19:40 06/29/17 19:40 06/29/17 19:40 Doctor's Discharge - Discharge Clinical Impression: DVT Condition: Stable Disposition: HOME, SELF-CARE Additional Instructions: As we discussed, the ultrasound does show a blood clot in the lower leg. If the blood clot is left untreated, it can grow and spread to the lungs and you can from it. With blood thinner, these blood clots are usually well controlled in the blood thinners usually only required for 3 months. There are times when the blood thinner is required for longer but the federal judicial law clerk can certainly review the options with you. I have spoken to the federal judicial law clerk affiliated with the hospital (Dr Mandujano) who is willing to see you in his office tomorrow so that he can get you some free samples and have his pharmacy set up a possible first month of blood thinner for free. The blood thinner injection that you got in the emergency room will only last 24 hours, so it is very important that you follow-up with Dr Mandujano in the morning. I would like you to call the office in the morning and tell them that the ER doctor had spoken to Dr. Mandujano and Dr. Mandujano wanted to see you tomorrow because of a blood clot. In the meantime, avoid any ibuprofen or Aleve. Continue other medicines. Return to the emergency room for worsening pain, shortness of breath, chest pain or any concerns or getting worse. Referrals: FRANCIE MANDUJANO MD [ACTIVE STAFF] - Follow up as needed (This is the number for the blood doctor. I want you to call the office 9:00 tomorrow morning: Tell the temporary receptionist that the ER doctor had spoken to Dr. Mandujano and Dr. Mandujano wanted you seen in the office tomorrow because of the blood clot.)
== END 2017-06-29 21:35 | disposition home or self-care (01) ==
LOC: ER 19:20
DX: I82.492 Acute embolism and thrombosis of other specified deep vein of left lower extremity (principal); I10 Essential (primary) hypertension
CPT/HCPCS: 99283

== ENCOUNTER → 2017-06-29 | Outpatient (CLI) | payer MEDICARE ==
--- NOTE | 2017-06-29 19:05 | XCELERA REPORT ---
[address] [address] Lower Extremity Venous Evaluation Name: KAHLIL MAX Age: 61 yrs Gender: Male : 1955 Patient Status: Outpatient Patient Location: Study Date: 06/29/2017 05:06 PM Procedure: Color flow and duplex imaging of the veins of the left lower extremity as well as the right Common Femoral vein. Reason For Study: LLE SWELLING Ordering Physician: TIFFANIE VEGA Performed By: Muriel Cyr Right Sided Venous Evaluation The right common femoral vein is fully compressible. Spontaneous and phasic flow is present in the right common femoral vein. Left Sided Venous Evaluation Abnormal vessel filling , no compression and or Colour flow in the Popliteal, Posterior Tibial and Peroneal veins.. Critical Findings Discussed with Dr Vega. Interpretation Summary Acute Deep Vein thrombosis in the left Popliteal and infrageniculate veins. The patient was taken to the Emergency room for disposition. : TIFFANIE VEGA > Bradley Mohr
== END ==
LOC: SP 16:46
PROVIDERS: ATTEND Internal Medicine Geriatric Medicine
DX: R22.42 Localized swelling, mass and lump, left lower limb (principal)
CPT/HCPCS: 93971

== ENCOUNTER → 2020-02-28 | Outpatient (CLI) | payer OTHER ==
--- NOTE | 2020-02-28 10:30 | RADIOLOGY REPORT (SQ) ---
EXAM DESCRIPTION: U/S ABD AORTIC SCREENING IMAGES COMPLETED DATE/TIME: 02/28/2020 9:59 am REASON FOR STUDY: [employer]CH[employer]IC SMOKER COMPARISON: CT abdomen pelvis 08/19/2016 TECHNIQUE: Static and dynamic grayscale images acquired of the aorta and stored on PACs. Selected co julio c Doppler and spectral images recorded. LIMITATIONS: None. FINDINGS: AORTIC CALIBER MAXIMAL PROXIMAL: 3.2 cm. MID: 2.6 cm. DISTAL: 2.4 cm. ILIAC DIAMETER RIGHT: 1.7 cm. LEFT: 1.5 cm. OTHER: No other significant finding. IMPRESSION: Ectasia proximal abdominal aorta COMMENT: Aortic aneurysm imaging followup: 3.0-3.4 cm Recommended followup every 3 years. *Based upon the ACR White Paper in the J Am Maia Radiol 2013;10 (10):789-794. *For aortas of maximum diameter of 2.6-2.9 cm meeting the criteria for AAA (?1.5 x proximal normal se gment) TECHNICAL DOCUMENTATION: JOB ID: [id number] 2010 [employer]- All Rights Reserved Reading location - IP/workstation name: [email or web address]
== END ==
LOC: RAD 08:33
PROVIDERS: ATTEND Physician Assistant
DX: Z13.6 Encounter for screening for cardiovascular disorders (principal); I77.819 Aortic ectasia, unspecified site; F17.200 Nicotine dependence, unspecified, uncomplicated
CPT/HCPCS: 76706